=== PATIENT | male | born 1970 | race Caucasian/White ===

== ENCOUNTER 2018-10-21 09:05 | Outpatient (CLI) | payer OTHER | END 2018-10-21 23:59 | disposition home or self-care (01) | LOC: RAD 09:05 | PROVIDERS: ATTEND Internal Medicine Hematology & Oncology | DX: S52.122A Displaced fracture of head of left radius, initial encounter for closed fracture (principal); M25.422 Effusion, left elbow; M77.9 Enthesopathy, unspecified; W19.XXXA Unspecified fall, initial encounter; Y93.89 Activity, other specified; Y92.89 Other specified places as the place of occurrence of the external cause; Y99.8 Other external cause status | CPT/HCPCS: 73080-TC; 73090-TC ==